=== PATIENT | female | born 1985 | race Caucasian/White ===

== ENCOUNTER 2019-11-29 09:52 | Inpatient (IN) | payer BC, SELFPAY ==
[2019-11-29] VITALS (117 sets, daily range): BP systolic 78–133; BP diastolic 45–99; PULSE 78–126; RESP 16; TEMP 36.5–37.2; O2SAT 95–100; BMI 30.2
--- NOTE | 2019-11-29 09:52 | LDADM ---
This patient, Som Rodriguez, was admitted to Labor/Delivery/Recovery 105 on 11/29/19 at 09:52. Plans for labor, pain management and were discussed with patient. Patient/family oriented to hospital policies and general routines including ID bracelet, bed and alarms, visiting hours, pain management, procedures, bathroom and other care routines, personal items, smoking policy, room service/diet and guest tray routines, security routines, and visiting hours. Patient/Family are encouraged to report perceived risks to care and to ask questions if they do not understand what they are told or what they should do. See OBIX for further documentation.
[2019-11-29 10:52] LABS: Glucose Point of Care 87 (65-105)
[2019-11-29 10:55] LABS: Basophils Percent Auto 0.2 % (0.2-1.2); Eosinophils Percent Auto 0.3 % (0-4.4); Hematocrit 35.5 % (37.0-47.0); Hemoglobin 12.3 g/dL (12.0-15.0); Immature Granulocyte Absolute 0.03 K/mm3 (0.00-0.031); Immature Granulocyte Percent A 0.3 % (0-0.5); Lymphocytes Absolute Auto 1.22 K/mm3 (0.9-3.2); Lymphocytes Percent Auto 13.7 % (18.3-44.2); Mean Corpuscular HGB Conc 34.6 g/dl (32-36); Mean Corpuscular Hemoglobin 32.5 pg (26-34); Mean Corpuscular Volume 93.7 fl (80-100); Mean Platelet Volume 9.8 fl (7.4-10.4); Monocytes Absolute Auto 0.5 K/mm3 (0.1-0.6); Monocytes Percent Auto 5.5 % (2.6-8.5); Neutrophils Absolute Auto 7.1 K/mm3 (1.3-6.7); Platelet Count Result 159 k/mm3 (150-375); Red Blood Count 3.79 M/mm3 (4.2-5.4); White Blood Count 8.9 K/mm3 (4.5-10.0)
[2019-11-29] MEDS: LACTATED RINGERS 1,000 ML 125 ML IV CONT ×3 (11:55→16:13)
[2019-11-29] MEDS: OXYTOCIN 30 UNITS/NS 500 ML 30 UNITS/500 ML BAG IV CONT (11:55)
[2019-11-29] MEDS: AMPICILLIN 2 GM/NS 100 ML 2 GM/100 ML BAG IVPB (14:00)
--- NOTE | 2019-11-29 14:04 | WPDANESEPP ---
Anes - Eval Pre Procedure Procedure: labor epidural Date/Time: 11/29/19 14:04 Surgeon: Lloyd Fernandez Preop Diagnosis: Pain during labor Pre Op Diagnosis: labor Patient Data Age: 34 Gender: F Height: 5 ft 2 in Weight: 75 kg Last Vital Signs Temp 36.8 C 11/29/19 12:40 Pulse 94 11/29/19 13:46 BP 111/74 11/29/19 13:46 Allergies Allergy/AdvReac Type Severity Reaction Status Date / Time No Known Allergies Allergy Verified 11/20/19 14:30 Home Medications Medication Instructions Recorded Confirmed Type PNV cmb#95-ferrous fumarate-FA 1 tablet PO DAILY 11/20/19 11/29/19 History [] insulin NPH isoph U-100 human 18 unit SUBCUT HS 11/20/19 11/29/19 History [Humulin N NPH U-100 Insulin] Laboratory Tests 11/29/19 11/29/19 11/29/19 10:47 10:50 10:50 WBC 8.9 K/mm3 K/mm3 (4.5-10.0) RBC 3.79 M/mm3 L M/mm3 (4.2-5.4) Hgb 12.3 g/dL g/dL (12.0-15.0) Hct 35.5 % L % (37.0-47.0) MCV 93.7 fl fl (80-100) MCH 32.5 pg pg (26-34) MCHC 34.6 g/dl g/dl (32-36) RDW 14.0 % % (11.5-14.5) Plt Count 159 k/mm3 k/mm3 (150-375) MPV 9.8 fl fl (7.4-10.4) Immature Gran % (Auto) 0.3 % % (0-0.5) Neut % (Auto) 80.0 % H % (45.5-73.1) Lymph % (Auto) 13.7 % L % (18.3-44.2) [place] % (Auto) 5.5 % % (2.6-8.5) Eos % (Auto) 0.3 % % (0-4.4) Baso % (Auto) 0.2 % % (0.2-1.2) Lymph # (Auto) 1.22 K/mm3 K/mm3 (0.9-3.2) [place] # (Auto) 0.5 K/mm3 K/mm3 (0.1-0.6) Eos # (Auto) 0.0 K/mm3 K/mm3 (0-0.3) Baso # (Auto) 0.0 K/mm3 K/mm3 (0.0-0.1) Abs Immat Gran (auto) 0.03 K/mm3 K/mm3 (0.00-0.031) Absolute Neuts (auto) 7.1 K/mm3 H K/mm3 (1.3-6.7) Absolute Nucleated RBC 0.0 K/mm3 K/mm3 (0.0-0.012) Nucleated RBC % 0.0 % % (0.0-0.2) POC Capillary Glucose 87 mg/dl mg/dl (65-105) RPR Pending Blood Type Antibody Screen 11/29/19 10:50 WBC RBC Hgb Hct MCV MCH MCHC RDW Plt Count MPV Immature Gran % (Auto) Neut % (Auto) Lymph % (Auto) [place] % (Auto) Eos % (Auto) Baso % (Auto) Lymph # (Auto) [place] # (Auto) Eos # (Auto) Baso # (Auto) Abs Immat Gran (auto) Absolute Neuts (auto) Absolute Nucleated RBC Nucleated RBC % POC Capillary Glucose RPR Blood Type B Positive Antibody Screen Negative Patient hx anesthesia problems: none Family hx anesthesia problems: none [facility] Past Medical History Medical History (Updated 11/29/19 @ 14:06 by Jose Rafael Matute CRNA) Gestational diabetes mellitus Obesity Family History Family History Other Unknown family medical history Social History Social History Smoking status: Never smoker Second hand tobacco smoke exposure: No Substance use: never Spiritual care concerns: No Exam Day of Procedure 11/29/19 14:04 Patient weight: normal Heart: regular rate and rhythm Lungs: clear to auscultation and normal air movement Neurological: alert and oriented
[2019-11-29 15:28] LABS: Glucose Point of Care 71 (65-105)
--- NOTE | 2019-11-29 17:31 | P.HPUP_ITS ---
History and Physical Update Update Date/Time: 11/29/19 17:31 34-year-old 4 para 1001 at 37 weeks gestati on who presents with spontaneous rupture membranes. She was augmented and currently is 6 cm. She has reassuring status. She is receiving antibiotics. She has a epidural, continued to expectant management. History and Physical has been reviewed, including an updated exam of the patient. There are NO changes in the patient's condition. Risks, benefits, and alternatives have been discussed and questions answered. Patient agrees to proceed with procedure.
[2019-11-29] MEDS: AMPICILLIN 1 GM/NS 50 ML 1 GM/50 ML BAG IVPB (18:10)
[2019-11-29 18:24] LABS: Glucose Point of Care 128 (65-105)
--- NOTE | 2019-11-29 19:31 | P.PCNOB_ITS ---
OB - Delivery Note Procedure Delivery date: 11/29/19 Procedure: vaginal delivery events: Gestational Diabetes Intrapartal events: None Delivery augmentation: pitocin Delivery monitor: external FHT and external uterine Laceration description: Perineal - 1st Degree Delivery repair: vicryl Specimen: Yes Estimated blood loss (mL): 95 Anesthesia type: Epidural Disposition: other () [place] Baby Date of : 11/29/19 Time of : 19:19 Weeks of gestation at delivery: 37 Infant gender: Male Weight (pounds): 7 Weight (ounces): 8 presentation: vertex position: Right Occiput Anterior Placenta delivery description: Spontaneous cord vessel description: 3 Vessels score one minute: 9 score five minutes: 9 Narrative: skin to skin mother and baby in stable condition
[2019-11-29] MEDS: OXYTOCIN 30 UNITS/NS 500 ML 30 UNITS/500 ML BAG 125 UNITS IV CONT (19:52)
[2019-11-29] MEDS: IBUPROFEN 600 MG TABLET PO (20:49)
[2019-11-29] MEDS: miSOPROStol 200 MCG TABLET 1000 MCG RECTAL (21:00)
--- NOTE | 2019-11-29 23:47 | PC.NURSE ---
This patient, Som Rodriguze, was received from labor & Delivery on 11/29/19 at 2151. Personal belongings list checked and signed. Patient/family oriented to unit policies and routines
[2019-11-30 05:17] LABS: Hematocrit 32.6 % (37.0-47.0); Hemoglobin 11.3 g/dL (12.0-15.0)
--- NOTE | 2019-11-30 07:17 | PM.OBPNVD ---
OB - PN: Subj Subjective Date/time seen: 11/30/19 07:17 Patient comments: no complaints baby status: doing well OB - PN: Obj Data Labs CBC & Chem 7: 11/30/19 04:31 Labs: Laboratory Results - last 24 hr 11/29/19 11/29/19 11/29/19 10:47 10:50 10:50 WBC 8.9 RBC 3.79 L Hgb 12.3 Hct 35.5 L MCV 93.7 MCH 32.5 MCHC 34.6 RDW 14.0 Plt Count 159 MPV 9.8 Immature Gran % (Auto) 0.3 Neut % (Auto) 80.0 H Lymph % (Auto) 13.7 L [place] % (Auto) 5.5 Eos % (Auto) 0.3 Baso % (Auto) 0.2 Lymph # (Auto) 1.22 [place] # (Auto) 0.5 Eos # (Auto) 0.0 Baso # (Auto) 0.0 Abs Immat Gran (auto) 0.03 Absolute Neuts (auto) 7.1 H Absolute Nucleated RBC 0.0 Nucleated RBC % 0.0 POC Capillary Glucose 87 Blood Type B Positive Antibody Screen Negative 11/29/19 11/29/19 11/30/19 15:17 18:13 04:31 WBC RBC Hgb 11.3 L Hct 32.6 L MCV MCH MCHC RDW Plt Count MPV Immature Gran % (Auto) Neut % (Auto) Lymph % (Auto) [place] % (Auto) Eos % (Auto) Baso % (Auto) Lymph # (Auto) [place] # (Auto) Eos # (Auto) Baso # (Auto) Abs Immat Gran (auto) Absolute Neuts (auto) Absolute Nucleated RBC Nucleated RBC % POC Capillary Glucose 71 128 H Blood Type Antibody Screen OB - PN A/P Plan day: 1 Plan: routine care Time Spent With Patient Time: Total time spent is greater than 50% in coordination of care (as documented) at patient's floor/unit and/or counseling patient: Exam Const: General: comfortable Psych: Appearance: grossly normal Affect: normal affect Attitude: cooperative Judgement: Good judgement present (Psych)
[2019-11-30 07:50] VITALS: BP 105/65; PULSE 87; RESP 16; TEMP 37.2; O2SAT 98
[2019-11-30 07:51] LABS: Rapid Plasma Reagin Non-Reactive (NonReactive)
[2019-11-30] MEDS: MULTIVIT/MIN/PREN/FOL AC/IRON TABLET 1 TAB PO (09:31)
[2019-11-30] MEDS: DOCUSATE SODIUM 100 MG CAPSULE PO (09:31)
--- NOTE | 2019-11-30 10:28 | WPDANLDPN2 ---
Anes-Prog Note L&D Date/Time: 11/30/19 10:28 Comfortable throughout: labor and delivery Neuraxial method: epidural Epidural/Spinal procedure site: clean & non-tender Neuro status: Neuro function grossly intact. Cardiovascular status: normal Respiratory status: normal Airway patency: baseline Mental status: baseline Post-Op hydration status: normal Vital Signs: Last Vital Signs Temp 37.2 C 11/30/19 07:50 Pulse 87 11/30/19 07:50 Resp 16 11/30/19 07:50 BP 105/65 11/30/19 07:50 Pulse Ox 98 11/30/19 07:50 I/O: Intake & Output 11/29/19 11/30/19 11/30/19 23:59 07:59 15:59 Intake Total 2550 Output Total 543 Balance 2007 Post-procedural complaints: none Patient feedback: Patient satisfied with anesthetic care.
[2019-11-30] MEDS: IBUPROFEN 600 MG TABLET PO (12:01)
--- NOTE | 2019-11-30 15:30 | PC.NURSE ---
Mother called out for assist with feeding. Mother reports she pumped with first child due to latch issues and wants to make sure is latched correctly. Mother has slight tenderness with feedings. Reviewed feeding cues, frequencies, duration of feedings, feeding elimination flow sheet, and signs of adequate intake. Demonstrated stimulation techniques to wake infant for feeding. Assisted with to breast. Reviewed positioning/alignment in cross cradle, holding breast in U hold and guided asymmetrical latch on. Discussed rational for each. was able to latch correctly. Infant nursed eagerly, with steady draws and frequent swallowing noted. Reviewed signs of a correct latch, effective nursing and suck swallow ratio. Infant was able to maintain latch without discomfort to mother. Nipple care reviewed. Suggested mother stimulate while feeding to keep infant awake and nursing effectively for increased intake and to assist with maintaining deep latch. Mother voices concerns with knowing infant is getting enough, reviewed weight, output and jaundice as sings of adequate intake. Instructed mother to call out for RN assistance if she is unable to latch infant for feeding or she has discomfort with nursing. Instructed feeding should be initiated three hours from start of last feeding or if feeding cues are noted before. Mother voiced understanding of information shared.
[2019-11-30 20:00] VITALS: BP 101/63; PULSE 91; RESP 16; TEMP 37.1; O2SAT 98
[2019-12-01 08:30] VITALS: BP 118/76; PULSE 104; RESP 18; TEMP 36.2
--- NOTE | 2019-12-01 10:33 | PM.OBPNVD ---
OB - PN: Subj Subjective Date/time seen: 12/01/19 10:33 Patient comments: no complaints, pain well controlled and other (Lochia similar to menses) [place] baby status: doing well OB - PN: Obj Data Labs CBC & Chem 7: 11/30/19 04:31 OB - PN A/P Plan day: 2 (s/p vaginal delivery, doing well) Plan: routine care, discharge home and other (Follow up in office in 4 weeks) Time Spent With Patient Time: Total time spent is greater than 50% in coordination of care (as documented) at patient's floor/unit and/or counseling patient: Exam Const: General: no acute distress GI: Inspection: other (Fundus firm and nontender below umbilicus) GI Palp: Yes Soft to palpation and No Tenderness to palpation present (GI) Extrem: General: no edema
[2019-12-01] MEDS: MULTIVIT/MIN/PREN/FOL AC/IRON TABLET 1 TAB PO (10:39)
[2019-12-01] MEDS: IBUPROFEN 600 MG TABLET PO (10:39)
[2019-12-03 07:48] VITALS: BP 113/75; PULSE 102; RESP 20; TEMP 36.6; O2SAT 99
--- NOTE | 2019-12-03 13:19 | PM.OBDSVD ---
DS: Admitting Diagnosis Admitting Diagnosis Admitting Diagnosis: labor OB - DS: Summary OB Procedures : None OB Procedures Intrapartum: Spontaneous Vag Delivery OB Procedures: : None Time Spent with Patient Time attestation: Total time spent providing and/or coordinating discharge services: DS: Data Data Completed and Pending Pending studies at discharge: Pending at discharge 11/29/19 19:22 Surgical [PTH] Routine Discharge Plan Discharge Attending physician on discharge: Tashia Fernandez Consulting providers: Precious Tovar Discharging Clinician: Bianca Fox Patient Disposition: Home, Self-Care Activity: may shower and pelvic rest Diet: regular Discharge Instructions: Education: Mom and Baby Guide Given to: Mother Follow-Up: Call your delivering provider's office for an appointment to be seen. Mom and baby should come to the [facility] for the follow-up appointment. Appointment Date/Time: December 03, 2019 at 8:00 am. What to expect at your follow-up visit: Physical Assessment Call [phone] if you are unable to keep your appointment time. BREAST CARE: * Wear a snug supportive bra. * For engorgement discomfort: Breast Feeding: * Apply warm moist washcloths * Express milk as needed to relieve engorgement * Wear loose clothing * For sore nipples: * Identify correct latch-on * Apply warm moist washcloths before and after nursing * Air dry nipples after nursing * May apply Lansinoh cream to nipples EPISIOTOMY/PERINEAL CARE: * Until bleeding stops, use your camila bottle after urinating * Change your pad frequently throughout the day * You may take sitz baths several times a day (fill your bathtub with warm water and soak for 20 minutes.) Do NOT bathe in the water * No tub baths until seen by your physician - You may shower ACTIVITY: * Rest as much as possible. * Do not exercise or lift anything heavier than your baby (such as laundry or other children.) * Avoid stairs or driving as much as possible. * Do not put anything into the vagina. No douching, tampons, or sexual activity until seen by physician. NOTIFY PHYSICIAN IF YOU HAVE ANY QUESTIONS OR IF ANY OF THE FOLLOWING SYMPTOMS OCCUR: * If your stitches become red, swollen, or more painful than what you have experienced in the hospital. * If your vaginal bleeding becomes foul smelling. * If your vaginal bleeding becomes more heavy than a period or if your bleeding changes from pink to bright red. However, you may pass an occasional walnut-sized clot once or twice for the first week . * If you experience a sharp, shooting pain in you calves. * If you discover a hard, reddened area on your breast or if you experience flu-like symptoms. DIET: * Eat regular, well-balanced meals. * Drink plenty of fluids daily. If , drink to thirst. Stand Alone Forms: General Discharge Information Follow-up/Referrals: Precious Tovar CNM [Certified Nurse Brake Liner] - 4 Weeks Discharge Medications: New ibuprofen 600 mg Tablet 600 mg PO Q6H PRN (Reason: Cramping) Qty: 60 RF: 0 Continued PNV cmb#95-ferrous fumarate-FA [] 28 mg iron- 800 mcg Tablet 1 tablet PO DAILY RF: 0 Discontinued Humulin N NPH U-100 Insulin 100 unit/mL Suspension 18 unit SUBCUT HS RF: 0 Date of admission: 11/29/19 09:52 Primary Care Provider: PHYSICIAN,TICKETER Admitting Provider: Tashia Fernandez Discharge Date/Time: 12/01/19 13:08 Attending physician on admission: Bianca Fox
== END 2019-12-01 13:08 | disposition home or self-care (01) | DRG 807 ==
LOC: ANHOB2 12-01 12:32 → ANHLDR 12-03 11:29 → ANHOB2 12-03 11:29
PROVIDERS: Advanced Practice Midwife; Admitting Provider Obstetrics & Gynecology; Visit Provider Obstetrics & Gynecology
DX: O62.3 Precipitate labor (principal); Z37.0 Single live birth; Z3A.37 37 weeks gestation of pregnancy; O24.429 Gestational diabetes mellitus in childbirth, unspecified control; O70.0 First degree perineal laceration during delivery
CPT/HCPCS: 36415; 85014; 85018; 85025; 86592; 86850; 86900; 86901; 88307; A9270; J0290; J2590; J2795; J7120

== ENCOUNTER → 2021-05-20 10:20 | Outpatient (CLI) | payer BC, OTHER, SELFPAY ==
--- NOTE | ~2021-05-20 | MR_ITS ---
EXAMINATION: MR brain/brain stem wo/w con DATE: 05/20/2021 11:07 INDICATION: Headache. Right-sided numbness. Blurred vision. TECHNIQUE: Magnetic resonance imaging (MRI) of the brain and brainstem was performed with 12 mL Multi Bari intravenous contrast. Sequences included sagittal and axial T1-weighted FSE, axial diffusion-we ighted FS EPI, axial T2*-weighted GRE, axial T2-weighted FLAIR Propeller, and axial T2-weighted Prope ller. Postcontrast sequences included axial and coronal T1-weighted FSE. Apparent diffusion coefficie nt (ADC) maps were created. COMPARISON: Head CT 04/06/2017 FINDINGS: There is no intracranial hemorrhage, acute infarction, or abnormal intracranial mass lesion . The ventricles are normal in size. The paranasal sinuses are clear. The orbits are normal. There is a trace right mastoid effusion. IMPRESSION: 1. Normal brain. Reviewed, dictated and finalized at location E. OW AND DOOR INSTALLER IMPRESSION: 1. Normal brain.
--- NOTE | ~2021-05-20 | US_ITS ---
EXAMINATION: US thyroid DATE: 05/20/2021 11:17 INDICATION: Abnormal thyroid function tests. TECHNIQUE: Multiple ultrasound images of the thyroid were obtained. COMPARISON: None. FINDINGS: The right thyroid lobe measures 5.2 x 1.6 x 1.6 cm. The left thyroid lobe measures 4.8 x 1.2 x 1.3 c m. In the left thyroid lobe, there is a 9 mm mixed cystic and solid, hypoechoic, [id number] nod ule with smooth margin without echogenic foci (TI-RADS TR3). In the right thyroid lobe, there is a 19 mm solid, hypoechoic, gbolp-[id number]-[id number] nodule with ill-defined margin without echogenic foci (TR4). IMPRESSION: 1. Thyroid nodules. Ultrasound-guided fine-needle aspiration of the right thyroid nodule is recommend ed. Reviewed, dictated and finalized at location E. L INSTALLER IMPRESSION: 1. Thyroid nodules. Ultrasound-guided fine-needle aspiration of the right thyro id nodule is recommended.
[2021-05-20 10:42] LABS: Estimated Glomerular Filt Rate > 60
== END ==
PROVIDERS: PCP Nurse Practitioner Adult Health; Visit Provider Nurse Practitioner Adult Health
DX: R51.9 Headache, unspecified (principal); R20.0 Anesthesia of skin; E04.1 Nontoxic single thyroid nodule
CPT/HCPCS: 70553; 76536; A9577

== ENCOUNTER → 2021-06-18 09:47 | Outpatient (CLI) | payer BC, OTHER, SELFPAY ==
--- NOTE | ~2021-06-18 | MR_ITS ---
EXAMINATION: MR thoracic spine wo/w con DATE: 06/18/2021 11:28 INDICATION: Multiple sclerosis. TECHNIQUE: Magnetic resonance imaging (MRI) of the thoracic spine was performed without and with 12 m L MultiHance intravenous contrast. Sequences included sagittal and axial T2-weighted FSE, sagittal ST IR FSE, and sagittal and axial T1-weighted FSE. Postcontrast sequences included sagittal and axial T1 -weighted FS FSE. COMPARISON: None FINDINGS: There is 3 degrees dextrocurvature of thoracic spine. Vertebral body heights are normal. Th ere is mildly decreased disc height at T4-T5. The discs do not extend beyond the endplate margins. Th ere is multilevel mild facet joint osteoarthritis. No neural foraminal stenosis or central canal sten osis. The spinal cord signal intensity is normal. IMPRESSION: 1. Normal spinal cord. Reviewed, dictated and finalized at location A. EAU ANALYST IMPRESSION: 1. Normal spinal cord.
--- NOTE | ~2021-06-18 | MR_ITS ---
EXAMINATION: MR cervical spine wo/w con DATE: 06/18/2021 11:29 INDICATION: Multiple sclerosis. TECHNIQUE: Magnetic resonance imaging (MRI) of the cervical spine was performed without and with 12 m L MultiHance intravenous contrast. Sequences included sagittal and axial T2-weighted FSE, sagittal ST IR FSE, and sagittal and axial T1-weighted FSE. Postcontrast sequences included sagittal and axial T1 -weighted FS FSE. COMPARISON: None FINDINGS: Bone alignment is normal. Vertebral body heights and intervertebral disc heights are normal . The spinal cord signal intensity is normal. There are nodules in the thyroid measuring up to 8 mm, likely not clinically significant. The following disc levels are specifically discussed: C2-C3: The disc does not extend beyond the endplate margin. There is no uncovertebral joint osteoarth ritis. There is mild left facet joint osteoarthritis. There is no neural foraminal stenosis. There is no central canal stenosis. C3-C4 through C6-C7: The disc does not extend beyond the endplate margin. There is no uncovertebral j oint osteoarthritis. There is no facet joint osteoarthritis. There is no neural foraminal stenosis. T here is no central canal stenosis. C7-T1: The disc does not extend beyond the endplate margin. There is no uncovertebral joint osteoarth ritis. There is moderate bilateral facet joint osteoarthritis. There is no neural foraminal stenosis. There is no central canal stenosis. IMPRESSION: 1. Normal spinal cord. Reviewed, dictated and finalized at location A. RVISOR SLITTING AND SHIPPING IMPRESSION: 1. Normal spinal cord.
[2021-06-18 10:13] LABS: Estimated Glomerular Filt Rate > 60
== END ==
DX: G35 Multiple sclerosis (principal); M47.813 Spondylosis without myelopathy or radiculopathy, cervicothoracic region; M48.03 Spinal stenosis, cervicothoracic region; Z86.73 Personal history of transient ischemic attack (TIA), and cerebral infarction without residual deficits
CPT/HCPCS: 72156; 72157; A9577

== ENCOUNTER → 2021-06-22 12:09 | Outpatient (CLI) | payer BC, OTHER, SELFPAY ==
--- NOTE | ~2021-06-22 | MR_ITS ---
EXAMINATION: MRA brain wo con DATE: 06/22/2021 13:42 INDICATION: Multiple sclerosis. Transient ischemic attack. Numbness. TECHNIQUE: Magnetic resonance angiography (MRA) of the brain was performed without intravenous contra st with T1-weighted SPGR by the 3D [id number] technique. Maximum intensity projection 3D-reconstr uctions were obtained. COMPARISON: Brain MRI 05/20/2021 FINDINGS: The vertebral arteries are codominant. There is no significant stenosis of basilar artery or the post erior cerebral arteries. There is no significant stenosis of the intracranial internal carotid arteri es or anterior or middle cerebral arteries. Anterior communicating artery is normal. The posterior co mmunicating arteries are normal. There is a 2 mm saccular aneurysm of supraclinoid right internal car otid artery directed inferomedially. IMPRESSION: 1. 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 Reviewed, dictated and finalized at location A. DCAST CHIEF ENGINEER IMPRESSION: 1. 2 mm saccular aneurysm of supraclinoid right internal carotid artery directe d inferomedially.
--- NOTE | ~2021-06-22 | MR_ITS ---
EXAMINATION: MRA neck wo/w con DATE: 06/22/2021 13:43 INDICATION: Transient ischemic attack. Multiple sclerosis. TECHNIQUE: Magnetic resonance angiography (MRA) of the neck was performed without and with 12 mL Mult iHance intravenous contrast. Sequences included axial 2D-time of flight T1-weighted FSPGR, axial Inha nce, and coronal T1-weighted FSPGR without and with intravenous contrast. COMPARISON: Cervical spine MRI 06/18/2021 FINDINGS: There is no significant stenosis of the vertebral arteries. There is no visible plaque in the proxima l internal carotid arteries. There is 0% stenosis of the proximal right internal carotid artery relat martha to normal distal artery lumen diameter (NASCET criteria). There is 0% stenosis of the proximal l eft internal carotid artery relative to normal distal artery lumen diameter. There are nodules in the thyroid measuring up to 8 mm, likely not clinically significant. There are no pathologically enlarge d lymph nodes. IMPRESSION: 1. Normal neck arteries. Reviewed, dictated and finalized at location A. FORMER MACHINE OPERATOR IMPRESSION: 1. Normal neck arteries.
== END ==
PROVIDERS: PCP Nurse Practitioner Adult Health
DX: G35 Multiple sclerosis (principal); R20.0 Anesthesia of skin; Z86.73 Personal history of transient ischemic attack (TIA), and cerebral infarction without residual deficits; I72.0 Aneurysm of carotid artery
CPT/HCPCS: 70544; 70549; A9577

== ENCOUNTER → 2021-07-07 14:35 | Outpatient (CLI) | payer BC, OTHER, SELFPAY ==
--- NOTE | ~2021-07-07 | XR_ITS ---
XR abdomen/kub 1V 07/07/2021 15:13 Indication: Right flank pain Procedure: KUB Comparison: Comparison to multiple prior studies sequentially, with oldest reviewed study dated 07/07. Findings: Bowel gas pattern is nonobstructive. Moderate colonic fecal loading. There are left renal s tones no acute osseous abnormality. Impression: 1: Left nephrolithiasis. Reviewed, dictated and finalized at location A. Impression: 1: Left nephrolithiasis.
== END ==
PROVIDERS: Visit Provider Nurse Practitioner Family
DX: R10.9 Unspecified abdominal pain (principal); N20.0 Calculus of kidney
CPT/HCPCS: 74018

== ENCOUNTER → 2021-08-11 15:26 | Outpatient (CLI) | payer BC, OTHER, SELFPAY ==
--- NOTE | ~2021-08-11 | CT_ITS ---
EXAMINATION: CT abdomen pelvis wo con DATE: 08/11/2021 15:43 INDICATION: Bilateral flank pain. Multiple kidney stones. TECHNIQUE: Computed tomography (CT) of the abdomen and pelvis was performed without intravenous contr ast. Automated exposure control and iterative reconstruction technique were employed. Exam dose: 217 .83 mGy-cm total exam DLP. COMPARISON: 07/07/2021 KUB 02/03/2018 CT abdomen pelvis without and with IV contrast material FINDINGS: The lung bases are clear. Normal heart size. No pericardial or pleural effusion. The liver, gallbladder, bile ducts, pancreas, pancreatic duct and spleen are unremarkable. Normal morphology of the adrenal glands. No renal space occupying mass lesion is evident on either side on this limited noncontrast examinatio n. No right renal or ureteral calculus or right-sided hydroureteronephrosis. There are 2 nonobstructing left renal calculi measuring approximately 3 mm and 3.5 mm dimension. No l eft ureteral calculus or hydroureteronephrosis. Normal caliber of the abdominal aorta. No intraperitoneal or retroperitoneal or pelvic mass lesion or adenopathy or ascites. Retroverted uterus. The urinary bladder is unremarkable. There is postoperative change due to the ileocecal area. No bowel obstruction is evident. As a promin ent amount of fecal material throughout the colon. No intraperitoneal free air. Included skeletal structures are unremarkable. Very small fat-containing umbilical hernia. IMPRESSION: Nonobstructive left nephrolithiasis Reviewed, dictated and finalized at Location A. Reviewed, dictated and finalized at location A.
== END ==
PROVIDERS: PCP Nurse Practitioner Adult Health; Visit Provider Nurse Practitioner Family
DX: N20.0 Calculus of kidney (principal); K42.9 Umbilical hernia without obstruction or gangrene
CPT/HCPCS: 74176